=== PATIENT | female | born 1980 | race Caucasian/White ===

== ENCOUNTER 2016-11-20 08:31 | Emergency (ER) | payer BC ==
[~2016-11-20] VITALS: Ht 165.1 cm; Wt 81.8 kg
[2016-11-20] MEDS ORDERED: WELLBUTRIN SR150 MG PO (08:48)
[2016-11-20 09:22] VITALS: BP 137/93
== END 2016-11-20 09:30 | disposition home or self-care (01) | DRG 607 ==
LOC: ED 08:31
DX: L98.9 Disorder of the skin and subcutaneous tissue, unspecified (principal)